=== PATIENT | female | born 1990 | race American Indian/Alaskan Native ===

== ENCOUNTER 2017-01-11 19:18 | Inpatient (IN) | payer MEDICAID ==
[2017-01-11] MEDS ORDERED: LACTATED RINGERS 2,000 ML ONE (20:33)
[2017-01-11] MEDS: LACTATED RINGERS 1,000 ML IV SCH ×2 (20:40→21:12)
[2017-01-11] MEDS ORDERED: PEPCID IV ONE (20:43)
[2017-01-11] MEDS ORDERED: BICITRA PO ONE (20:43)
[2017-01-11] MEDS ORDERED: REGLAN IV ONE (20:43)
[2017-01-11 20:54] LABS: Hemoglobin 11.6 gm/dl (10.1-14.3); Mean Corpuscular HGB Conc 34 % (30-34); Mean Corpuscular Hemoglobin 31 pg (28-32); Mean Corpuscular Volume 90 fl (79-97); Platelet Count 172 K/mm3 (140-440); Red Blood Count 3.77 M/mm3 (3.65-5.03); Red Cell Distribution Width 13.9 % (13.2-15.2); White Blood Count 9.9 K/mm3 (4.5-11.0)
[2017-01-11 21:00] LABS: Bilirubin,Urine NEG (Negative); Blood,Urine NEG (Negative); Ketones,Urine NEG (Negative); Leukocyte Esterase,Urine NEG (Negative); Nitrite,Urine NEG (Negative); Protein,Urine <15 mg/dL mg/dL (Negative); Urobilinogen,Urine < 2.0 mg/dL (<2.0)
[2017-01-11] MEDS ORDERED: PITOCin/NS 20 UNIT/1000ML DRIP 20 UNITS/1,000 ML BAG IV SCH (21:00)
[2017-01-11] MEDS ORDERED: ANCEF/STERILE WATER 2 GM/20 ML 2 GM/20 ML SYRINGE IV NR (21:00)
--- NOTE | 2017-01-11 21:12 | Anesthesia Day of Surgery ---
Anesthesia Day of Surgery - Day of Surgery Patient Examined: Yes Patient H&P Reviewed: Yes Patient is NPO: Yes
--- NOTE | 2017-01-11 21:12 | Anesthesia Consultation ---
Anesthesia Consult and Med Hx Date of service: 01/11/17 - Airway Anesthetic Teeth Evaluation: Good ROM Head & Neck: Adequate Mental/Hyoid Distance: Adequate Mallampati Class: Class II Intubation Access Assessment: Probably Good - Pulmonary Exam CTA: Yes - Cardiac Exam Cardiac Exam: RRR - Pre-Operative Health Status ASA Pre-Surgery Classification: ASA2 Proposed Anesthetic Plan: Spinal - Pulmonary Hx Asthma: No COPD: No Hx Pneumonia: No - Cardiovascular System Hx Hypertension: No - Central Nervous System Hx Seizures: No Hx Psychiatric Problems: No - Endocrine Hx Renal Disease: No Hx End Stage Renal Disease: No Hx Hypothyroidism: No Hx Hyperthyroidism: No - Hematic Hx Anemia: No Hx Sickle Cell Disease: No - Other Systems Hx Alcohol Use: No
[2017-01-11 21:21] LABS: Alanine Aminotransferase 17 units/L (7-56); Lactate Dehydrogenase 278 units/L (91-180); Uric Acid 5.4 mg/dL (3.5-7.6)
[2017-01-11] MEDS ORDERED: MORPHINE ONE (21:24)
--- NOTE | 2017-01-11 21:28 | History and Physical Report ---
History of Present Illness Date of examination: 01/11/17 Date of admission: 01/11/17 21:00 Chief complaint: sent from the office for elevated blood pressure History of present illness: 26 year old female ELIAS 01/18/17 at 39w0d presents from the office for evaluation of elevated blood pressures 150-160/90-100s. Upon entry to triage, blood pressures 140s/90s. Pt denies headache, blurry vision or RUQ pain. She had had care at [facility] since 7 wks complicated by sickle cell trait and previous section. She is GBS negative. Past History Past Medical History: no pertinent history Past Surgical History: section (2012) [employer] History: abnormal PAP smear Family/Genetic History: diabetes, hypertension Social history: no significant social history - Obstetrical History Expected Date of Delivery: 01/18/17 Actual Gestation: 39 Week(s) 0 Day(s) : 2 Para: 1 Hx # Term Pregnancies: 1 Number of Pregnancies: 0 Spontaneous Abortions: 0 Induced : 0 Number of Living Children: 1 Medications and Allergies Allergies Allergy/AdvReac Type Severity Reaction Status Date / Time No Known Allergies Allergy Verified 01/11/17 21:04 Active Meds: Active Medications Lactated Ringer's (Lactated Ringers) 1,000 mls @ 2,250 mls/hr IV PREOP ANDREW Stop: 01/12/17 21:27 Last Admin: 01/11/17 21:12 Dose: 2,250 mls/hr Oxytocin/Sodium Chloride (Pitocin/Ns 20 Unit/1000ml Drip) 20 units in 1,000 mls @ 0 mls/hr IV TITR ANDREW PRN Reason: As Directed Review of Systems All systems: negative - Vital Signs Vital signs: Vital Signs Pulse Pulse Ox 82 97 01/11/17 19:55 01/11/17 19:55 Temp Pulse Resp BP Pulse Ox 98.1 F 96 H 18 171/105 98 01/11/17 20:32 01/11/17 21:24 01/11/17 20:32 01/11/17 21:16 01/11/17 21:24 - Physical Exam Breasts: Positive: deferred Abdomen: Positive: soft (obese, gravid ) Uterus: Positive: enlarged (gravid ) Extremities: Positive: normal - Obstetrical FHR: category 2 ( tachycardia ) Uterine Contraction Monitor Mode: External Uterine Contraction Pattern: Irregular Uterine Tone Measurement Phase: Resting Uterine Contraction Intensity: Moderate Results Result Diagrams: 01/11/17 20:39 01/11/17 20:39 Abnormal lab results 01/11/17 Range/Units 20:39 Creatinine 0.5 L (0.7-1.2) mg/dL Lactate Dehydrogenase 278 H (91-180) units/L All other labs normal. Assessment and Plan A: IUP at 39w0d Gestational Hypertension Previous x 1 Obesity P: Proceed with repeat section and other indicated procedures.
[2017-01-11] MEDS ORDERED: NACL 0.9% IR ONE (21:35)
[2017-01-11] MEDS ORDERED: WATER FOR IRRIG STERILE IR ONE (21:35)
[2017-01-11] MEDS ORDERED: ZOFRAN ONE (22:28)
[2017-01-11] MEDS ORDERED: VERSED ONE (22:30)
[2017-01-11] MEDS ORDERED: NORMODYNE IV ONE (22:50)
--- NOTE | 2017-01-11 23:18 | Procedure Note ---
OB Delivery Note - Delivery Date of Delivery: 01/11/17 Surgeon: JOSH SHOOK Estimated blood loss: other (1200 mL) - Section Preop diagnosis: repeat , other (Preeclampsia ) Postop diagnosis: same section procedure: section, repeat low transverse Disposition: PACU Complications: uterine atony Narrative: Please see operative note. - Infant A at 1 minute: 8 at 5 minutes: 9 Infant Gender: Female (3557g (7lb 13.4 oz) @ 2216 pm)
--- NOTE | 2017-01-11 23:29 | Operative Report ---
Operative Report Operative Report: Date of procedure: January 11, 2017 Preoperative diagnosis: 1) IUP at 39w0d 2) Preeclampsia 3) Obesity 4) Previous x 1 Postoperative diagnosis: Same Procedure: Repeat low transverse section Surgeon: Lizzy Ro M.D. Anesthesia: Spinal Findings: 1) Viable female , Apgars 8 and 9, weight 3557g, (7 lb 13.4 oz) 2) Normal-appearing uterus ovaries and tubes. 2 cm right paratubal cyst Estimated blood loss: 1200 mL IV fluids: 1400 mL Urine output: 500 mL, clear at the end of the procedure Drains: Brand to gravity Specimens: Placenta to pathology Medications: 20 additional units of pitocin in IV fluids Disposition: Stable to PACU Indication for procedure: Pt is a 26 year old at 39w0 with a h/o previous x 1 presents with elevated blood pressures in the office. The decision was made to proceed to delivery. Operation in detail: After the risks, benefits, alternatives and complications were explained to the patient she gave informed consent for the procedure. She was subsequently taken to the operating room where spinal anesthesia was noted to be adequate. She was subsequently placed in the dorsal supine position with leftward tilt and prepped and draped in a normal sterile fashion. heart tones were noted to be in the 145s prior to incision. A timeout was performed. A Pfannenstiel skin incision was made with the knife and carried down to the layer of the fascia with the Bovie. The fascia was incised in the midline and the fascial incision was extended bilaterally with the Bovie. Attention was then turned to the superior aspect of the incision which was grasped with two Kochers, tented up, and dissected off the rectus muscles. Attention was then turned to the inferior aspect of the incision which was grasped with two Kochers , tented up and dissected off the rectus muscles. The rectus muscles were then in the midline and partially transected for adequate visualization. The peritoneum was then entered between two Audrey clamps. The peritoneal incision was extended with good visualization of the bladder. The peritoneal incision was then stretched. An Tadeo self-retaining retractor was placed for visualization. The bladder blade was placed. The vesicouterine peritoneum was grasped with smooth pickups and incised with Metzenbaum scissors. Metzenbaum scissors were used to extend the incision bilaterally. The bladder flap was then created digitally and the bladder blade was replaced. A transverse incision was made in the lower uterine segment with a knife and extended bilaterally with the bandage scissors. The head was delivered without difficulty followed by shoulders and body. was bulb suctioned at delivery. The cord was clamped and cut and the was handed to NICU staff in attendance. Cord blood was collected. The placenta was then delivered manually. The uterus was then exteriorized and cleared of all clots and debris. The uterus was noted to be atonic and 20 additional units of pitocin were added to the IVFs. Uterine tone improved. The hysterotomy was then reapproximated with 0 Vicryl in a running locked fashion. A second layer of the same suture was used in imbricating fashion. A figure of eight of 2-0 Vicryl was placed on the right side of the hysterotomy for hemostasis. The hysterotomy was inspected and hemostasis was noted. The Tadeo self-retaining retractor was removed. The gutters were irrigated and cleared of all clots and debris. The hysterotomy was again inspected and noted to be hemostatic. Surgicel was placed over the hysterotomy. The peritoneum was reapproximated with 2-0 Vicryl in a running fashion. The rectus muscles were then reapproximated with 2-0 Vicryl in an interrupted fashion. The cut edges of the rectus were covered with Surgicel. The fascia was reapproximated with 0 Vicryl in a running fashion. The subcutaneous tissue was reapproximated with 3-0 Vicryl in a running fashion. The skin was reapproximated with 4-0 Vicryl in a subcuticular fashion. The incision was then covered with steri strips and a pressure dressing. The procedure was then ended. The patient tolerated the procedure well and was taken to the PACU in stable condition. All instrument, lap, and needle counts were correct 3.
[2017-01-11] MEDS ORDERED: APRESOLINE IV PRN (23:32)
[2017-01-11] MEDS ORDERED: CALCIUM GLUCONATE IV ONE (23:32)
[2017-01-11] MEDS ORDERED: MAGNESIUM SULFATE 4GM/100ML 4 GM/100 ML BAG IV ONE ×2 (23:32→23:39)
[2017-01-11] MEDS ORDERED: PHENERGAN PR PRN (23:34)
[2017-01-11] MEDS ORDERED: PHENERGAN PO PRN (23:34)
[2017-01-11] MEDS ORDERED: ZOFRAN IV PRN (23:34)
[2017-01-11] MEDS ORDERED: NARCAN 0.4 MG/1 ML IV PRN (23:34)
--- NOTE | 2017-01-11 23:34 | Post Anesthesia Evaluation ---
- Post Anesthesia Evaluation Patient Participated: Yes Airway Patent: Yes Stable Respiratory Function: Yes Nausea/Vomiting: No Temp > 96.8F: Yes Pain Manageable: Yes Adequeate Hydration: Yes Anesthesia Complications: No Block Receding Appropriately: Yes Patient on Ventilator: No
[2017-01-11] MEDS ORDERED: MAGNESIUM SULFATE 40GM/1000ML 40 GM/1,000 ML BAG IV ONE (23:39)
[2017-01-11] MEDS ORDERED: SODIUM CHLORIDE FLUSH SYRINGE 10 ML IV PRN (23:45)
[2017-01-11] MEDS ORDERED: MAGNESIUM SULFATE 40GM/1000ML 40 GM/1,000 ML BAG IV SCH (23:45)
[2017-01-11] MEDS: DILAUDID IV PRN (23:55)
[2017-01-12] MEDS ORDERED: TORADOL ONE (00:18)
[2017-01-12 00:58] LABS: INR 0.96 (0.87-1.13)
[2017-01-12 02:04] LABS: Alanine Aminotransferase 15 units/L (7-56); Uric Acid 4.9 mg/dL (3.5-7.6)
[2017-01-12 02:15] LABS: Lactate Dehydrogenase 286 units/L (91-180)
[2017-01-12] MEDS ORDERED: TYLENOL PO PRN (02:23)
[2017-01-12] MEDS ORDERED: NARCAN 0.4 MG/1 ML IV PRN (02:23)
[2017-01-12] MEDS ORDERED: LANSINOH TP PRN (02:23)
[2017-01-12] MEDS ORDERED: MYLICON PO PRN (02:23)
[2017-01-12] MEDS ORDERED: PERCOCET 5/325 PO PRN (02:23)
[2017-01-12] MEDS ORDERED: D5LR 1,000 ML IV SCH (02:23)
[2017-01-12] MEDS ORDERED: SODIUM CHLORIDE FLUSH SYRINGE 10 ML IV NR (02:23)
[2017-01-12] MEDS ORDERED: TORADOL IV PRN (02:23)
[2017-01-12] MEDS ORDERED: TUCKS PAD TP PRN (02:23)
[2017-01-12] MEDS ORDERED: MORPHINE IV PRN ×2 (02:23)
[2017-01-12] MEDS ORDERED: PITOCin/NS 20 UNIT/1000ML DRIP 20 UNITS/1,000 ML BAG IV SCH (02:23)
[2017-01-12] MEDS ORDERED: ZOFRAN IV PRN (02:23)
[2017-01-12] MEDS: DILAUDID IV PRN (04:09)
[2017-01-12] MEDS: ANCEF/NS 1 GM/50 ML 1 GM/50 ML BAG IV SCH ×2 (04:50→12:45)
[2017-01-12 06:27] LABS: Hematocrit 27.3 % (30.3-42.9); Hemoglobin 9.5 gm/dl (10.1-14.3); Mean Corpuscular HGB Conc 35 % (30-34); Mean Corpuscular Hemoglobin 32 pg (28-32); Mean Corpuscular Volume 91 fl (79-97); Platelet Count 149 K/mm3 (140-440); Red Blood Count 3.02 M/mm3 (3.65-5.03); Red Cell Distribution Width 13.6 % (13.2-15.2); White Blood Count 12.7 K/mm3 (4.5-11.0)
--- NOTE | 2017-01-12 08:09 | Progress Note ---
Assessment and Plan - Patient Problems (1) Gestational hypertension Current Visit: Yes Status: Acute Qualifiers: Trimester: T Plan to address problem: continue magnesium postoperative care Subjective - Subjective Date of service: 01/12/17 Interval history: Patient states she felt slightly nauseated early. Patient receiving magnesium therapy. infant. Pain currently controlled. Patient reports: pain well controlled, no voiding normally, no flatus : doing well Objective - Vital Signs Latest vital signs: Vital Signs Temp Pulse Resp BP BP Pulse Ox 01/12/17 06:50 98.6 F 89 18 134/83 01/12/17 04:40 98.6 F 82 20 130/80 01/12/17 02:00 97.7 F 74 20 134/86 01/12/17 01:00 85 14 139/91 95 01/12/17 00:50 81 13 139/88 95 01/12/17 00:40 80 19 130/93 97 01/12/17 00:31 28 H 01/12/17 00:30 84 25 H 143/97 98 01/12/17 00:20 78 18 148/97 97 01/12/17 00:10 84 39 H 168/102 98 01/12/17 00:00 81 22 158/97 97 01/11/17 23:55 30 H 01/11/17 23:50 85 16 153/107 98 01/11/17 23:40 91 H 11 L 156/102 99 01/11/17 23:30 83 14 154/103 99 01/11/17 23:27 83 11 L 98 01/11/17 21:28 92 H 99 01/11/17 21:27 92 H 99 01/11/17 21:24 96 H 98 01/11/17 21:23 96 H 99 01/11/17 21:22 91 H 99 01/11/17 21:17 79 92 01/11/17 21:16 83 171/105 99 01/11/17 21:13 178 H 83 L 01/11/17 21:12 178 H 82 L 01/11/17 21:11 83 80 L 01/11/17 21:10 90 78 L 01/11/17 21:09 107 H 80 L 01/11/17 21:08 156 H 81 L 01/11/17 21:07 87 99 01/11/17 21:05 83 97 01/11/17 21:04 159 H 74 L 01/11/17 21:03 84 80 L 01/11/17 21:02 91 H 82 L 01/11/17 21:01 85 159/105 88 01/11/17 20:59 85 98 01/11/17 20:58 81 98 01/11/17 20:57 84 97 01/11/17 20:56 85 99 01/11/17 20:54 79 99 01/11/17 20:53 79 99 01/11/17 20:50 88 75 L 01/11/17 20:49 85 99 01/11/17 20:47 86 99 01/11/17 20:46 86 154/102 99 01/11/17 20:44 87 99 01/11/17 20:39 83 96 01/11/17 20:38 85 86 01/11/17 20:36 125 H 89 01/11/17 20:35 100 H 99 01/11/17 20:34 88 81 L 01/11/17 20:33 85 96 01/11/17 20:32 98.1 F 18 01/11/17 20:31 82 138/88 96 01/11/17 20:30 81 97 01/11/17 20:26 92 H 98 01/11/17 20:24 91 H 90 01/11/17 20:23 133 H 88 01/11/17 20:22 92 H 88 01/11/17 20:21 86 81 L 01/11/17 20:20 141 H 80 L 01/11/17 20:17 94 H 81 L 01/11/17 20:16 92 H 92 01/11/17 20:15 121 H 147/90 79 L 01/11/17 20:14 83 81 L 01/11/17 20:13 182 H 79 L 01/11/17 20:12 182 H 87 01/11/17 20:10 96 H 82 L 01/11/17 20:09 421 H 86 01/11/17 20:07 67 82 L 01/11/17 20:05 84 98 01/11/17 20:04 86 89 01/11/17 20:02 85 98 01/11/17 20:01 64 82 L 01/11/17 20:00 85 143/92 97 01/11/17 19:59 89 81 L 01/11/17 19:58 85 99 01/11/17 19:57 88 149/82 97 01/11/17 19:56 83 157/108 96 01/11/17 19:55 82 97 Intake and Output 01/11/17 01/12/17 01/12/17 22:59 06:59 14:59 Intake Total 2400 580 Output Total 1300 Balance 2400 -720 Intake: IV 2400 400 Lactated Ringers 1,000 ml 1000 @ 2250 mls/hr IV PREOP [facility] Rx#:[id number] Intake, Free Water 180 Output: Urine 1300 Indwelling Catheter 500 Other: Total, Output Amount 500 Weight 86.636 kg Estimated Blood Loss 1,200 - Exam Abdomen: Present: normal appearance, soft Incision: Present: dressed - Labs Labs: Abnormal lab results 01/11/17 01/12/17 01/12/17 Range/Units 20:39 00:01 05:40 WBC 12.7 H (4.5-11.0) K/mm3 RBC 3.02 L (3.65-5.03) M/mm3 Hgb 9.5 L (10.1-14.3) gm/dl Hct 27.3 L D (30.3-42.9) % MCHC 35 H (30-34) % Creatinine 0.5 L 0.5 L (0.7-1.2) mg/dL Lactate Dehydrogenase 278 H 286 H (91-180) units/L
[2017-01-12] MEDS: FEOSOL PO SCH ×2 (12:53→21:53)
[2017-01-12] MEDS: PRENATAL VITAMIN PO SCH (12:54)
--- NOTE | 2017-01-12 13:02 | Progress Note ---
Subjective Date of service: 01/12/17 Interval history: 1st POD after Patient is in the room, comfortable. Pain is mostly controlled with pain meds. Ambulated well. No residual neurological deficit. No anesthesia complications Objective - Constitutional Vitals: Vital Signs - 12hr 01/12/17 01/12/17 01/12/17 02:00 04:40 06:50 Temperature 97.7 F 98.6 F 98.6 F Pulse Rate 74 82 89 Respiratory 20 20 18 Rate Blood Pressure 134/86 130/80 134/83 [Left] 01/12/17 08:25 Temperature 98.6 F Pulse Rate 98 H Respiratory 18 Rate Blood Pressure 128/77 [Left] - Labs CBC & Chem 7: 01/12/17 05:40 01/12/17 00:01 Labs: Abnormal lab results 01/11/17 01/12/17 01/12/17 Range/Units 20:39 00:01 05:40 WBC 12.7 H (4.5-11.0) K/mm3 RBC 3.02 L (3.65-5.03) M/mm3 Hgb 9.5 L (10.1-14.3) gm/dl Hct 27.3 L D (30.3-42.9) % MCHC 35 H (30-34) % Creatinine 0.5 L 0.5 L (0.7-1.2) mg/dL Lactate Dehydrogenase 278 H 286 H (91-180) units/L
[2017-01-12 13:37] LABS: Hematocrit 25.8 % (30.3-42.9); Hemoglobin 8.9 gm/dl (10.1-14.3)
[2017-01-12] MEDS: PERCOCET 5/325 PO PRN (21:52)
[2017-01-12] MEDS ORDERED: M-M-R II VACCINE SUB-Q ONE (23:36)
[2017-01-13] MEDS: PERCOCET 5/325 PO PRN (01:06)
[2017-01-13] MEDS: MOTRIN PO PRN ×2 (01:09→13:33)
[2017-01-13] MEDS ORDERED: BOOSTRIX IM ONE (06:00)
[2017-01-13] MEDS: MILK OF MAGNESIA PO SCH ×2 (08:09→13:34)
[2017-01-13 08:13] LABS: Hematocrit 24.4 % (30.3-42.9); Hemoglobin 8.6 gm/dl (10.1-14.3)
--- NOTE | 2017-01-13 08:30 | Progress Note ---
Assessment and Plan A/P POD#2 s/p repeat csec s/p mag for 24 hrs Blood pressure normal ambulating well s/p mag citrate with BM july d/c home vss breast and bottle feeding considering micronor f/u in 2 weeks pain controlled tolerating regular diet d/c home with f/u in 2 weeks Subjective - Subjective Date of service: 01/13/17 Principal diagnosis: s/p repeat c/sec/PIH Patient reports: appetite normal, voiding normally, pain well controlled, flatus , ambulating normally : doing well Objective - Vital Signs Latest vital signs: Vital Signs Temp Pulse Resp BP 01/13/17 04:00 98.6 F 77 18 122/76 01/13/17 00:00 98.4 F 78 18 124/77 01/12/17 22:30 98.6 F 66 16 129/77 01/12/17 19:30 98.6 F 66 16 122/78 01/12/17 18:15 98.8 F 97 H 18 125/76 01/12/17 16:20 98.2 F 96 H 18 119/75 01/12/17 14:10 98.2 F 88 18 120/69 01/12/17 12:20 98.6 F 96 H 18 128/78 01/12/17 10:00 98.8 F 96 H 20 129/80 Intake and Output 01/12/17 01/13/17 01/13/17 23:59 07:59 15:59 Intake Total 360 1100 Output Total 2200 1500 Balance -1840 -400 Intake: Oral 360 500 Intake, Free Water 600 Output: Urine 2200 1500 Indwelling Catheter 2200 900 Void 600 Other: Total, Intake Amount 240 250 Total, Output Amount 800 600 # Voids Indwelling Catheter 0 Void 1 - Exam Breasts: Present: normal Cardiovascular: Present: Regular rate, Normal S1 Lungs: Present: Clear to auscultation, Normal air movement Abdomen: Present: normal appearance, soft, normal bowel sounds. Absent: distention, tenderness, guarding Vulva: both: normal Uterus: Present: normal, firm, fundal height below umbilicus. Absent: bogginess , tenderness Extremities: Present: normal Deep Tendon Reflex Grade: Normal +2 Incision: Present: normal, dry, intact. Absent: erythematous - Labs Labs: Abnormal lab results 01/12/17 01/12/1701/12/17 Range/Units 13:03 13:03 17:48 Hgb 8.9 L (10.1-14.3) gm/dl Hct 25.8 L (30.3-42.9) % Magnesium 4.60 H 5.00 H (1.7-2.3) mg/dL 01/13/17 01/13/17 01/13/17 Range/Units 00:17 06:05 07:57 Hgb 8.6 L (10.1-14.3) gm/dl Hct 24.4 L (30.3-42.9) % Magnesium 4.40 H 2.90 H (1.7-2.3) mg/dL
[2017-01-13] MEDS: PRENATAL VITAMIN PO SCH (11:03)
[2017-01-13] MEDS: FEOSOL PO SCH (11:03)
--- NOTE | 2017-01-13 17:18 | Discharge Summary ---
Providers - Providers Date of Admission: 01/11/17 21:00 Date of discharge: 01/13/17 Attending physician: TIN FRANCES 01/12/17 02:23 Consult to Signing Teacher [CONS] Routine Reason For Exam: Primary care physician: TIN FRANCES Hospitalization Reason for admission: IUP at term Delivery: Procedure: repeat low transverse Episiotomy: none Laceration: none Incision: normal, dry, intact Other procedures: none complications: none baby: female Condition at discharge: Good Disposition: DC-01 TO HOME OR SELFCARE Plan - Discharge Medications Prescriptions: Docusate Sodium [Colace] 100 mg PO BID PRN #30 capsule PRN Reason: Constipation Ferrous Sulfate 325 mg PO BID #60 tablet. Ibuprofen [Motrin] 600 mg PO Q8H PRN #30 tablet PRN Reason: Pain oxyCODONE /ACETAMINOPHEN [Percocet 5/325] 1 tab PO Q6HR PRN #30 tablet PRN Reason: Pain - Provider Discharge Summary Activity: routine, no sex for 6 weeks, no strenuous exercise Diet: routine Instructions: routine Additional instructions: [] Smoking cessation referral if applicable(refer to patient education folder for contact #) [] Refer to [facility]'s [facility] Booklet Call your doctor immediately for: * Fever > 100.5 * Heavy vaginal bleeding ( >1 pad per hour) * Severe persistent headache * Shortness of breath * Reddened, hot, painful area to leg or breast * Drainage or odor from incision. * Keep incision clean and dry at all times and follow doctor's instructions regarding bathing/showering - Follow up plan Follow up: TIN FRANCES MD [Primary Care Provider] - 14 Days Forms: [facility] Discharge Summary, Discharge Signature Page
[2017-01-13 18:37] VITALS: BP 129/79
== END 2017-01-13 19:02 | disposition home or self-care (01) | DRG 766 ==
LOC: TRG 19:18 → APU 21:00 → OB 01-12 01:22
PROVIDERS: ADMIT Obstetrics & Gynecology; ATTEND Obstetrics & Gynecology
PROC: 10D00Z1 Extraction of Products of Conception, Low, Open Approach (ICD-10-PCS; principal; 2017-01-11)
PROC: 3E0234Z Introduction of Serum, Toxoid and Vaccine into Muscle, Percutaneous Approach (ICD-10-PCS; 2017-01-11)
DX: O34.211 Maternal care for low transverse scar from previous cesarean delivery (principal); O13.4 Gestational [pregnancy-induced] hypertension without significant proteinuria, complicating childbirth; Z3A.39 39 weeks gestation of pregnancy; E66.9 Obesity, unspecified; O62.2 Other uterine inertia; Z37.0 Single live birth; O76 Abnormality in fetal heart rate and rhythm complicating labor and delivery; O14.94 Unspecified pre-eclampsia, complicating childbirth; O99.214 Obesity complicating childbirth; Z68.32 Body mass index [BMI] 32.0-32.9, adult; Z23 Encounter for immunization; O99.02 Anemia complicating childbirth; D57.3 Sickle-cell trait
CPT/HCPCS: 36415; 81001; 82565; 83615; 83735; 84450; 84460; 84550; 85014; 85018; 85027; 85610; 85730; 86592; 86850; 86900; 86901; 88307; 90715; 99211; G0463; J0690; J1170; J1885; J2250; J2270; J2405; J2590; J2765; J3475; J7120; J7121